=== PATIENT | female | born 1940 | race African-American/Black ===

== ENCOUNTER 2018-04-11 08:12 | Day surgery (SDC) | payer MEDICARE, BC ==
[~2018-04-11] VITALS: Ht 162.6 cm; Wt 67.6 kg
[2018-04-11] VITALS (7 sets, daily range): BP systolic 116–155; BP diastolic 71–87
[~2018-04-11 08:12] MED LIST: BAYER PLUS 500500 MG PO; CITRACAL + D C1 EACH PO; COZAAR50 MG PO; ESTER-C 500 MG1 EACH PO; FISH OIL SOFTG1 EAC1 PO; GARLIC400 MG PO; GLUCOSAMINE CO1 EACH PO; IBUPROFEN600 MG ORAL; LIPITOR80 MG ORAL; METOPROLOL SUCC50 MG ORAL; TAB-A-VITE1 EACH ORAL
[2018-04-11] MEDS ORDERED: Midazolam 2mg/2ml Inj ONE (08:36)
--- NOTE | 2018-04-11 10:05 | Pre-Procedure Note/Attestation ---
Pre-Procedure Note/Attestation Complete Prior to Procedure Planned Procedure: not applicable Procedure Narrative: colonoscopy Indications for Procedure Pre-Operative Diagnosis: screening Attestation I attest that I discussed the nature of the procedure; its benefits; risks and complications; and alternatives (and the risks and benefits of such alternatives ), prior to the procedure, with the patient (or the patient's legal field representative). I attest that, if there was a reasonable possibility of needing a blood transfusion, the patient (or the patient's legal field representative) was given the [facility] standardized written summary, pursuant to the [place] Blood Safety Act ([place] Health and Safety Code # 1645, as amended). I attest that I re-evaluated the patient just prior to the surgery and that there has been no change in the patient's H&P, except as documented below: Marvin Panchal MD Apr 11, 2018 10:05
--- NOTE | 2018-04-11 10:06 | Short Stay Surgery H&P ---
History of Present Illness History of Present Illness Chief Complaint screening colonoscopy HPI Jeremy Vasques is a 77 year old female who was admitted on for Colon Screening Patient History Allergies: Coded Allergies: No Known Allergies (Unverified , 04/11/18) PAST MEDICAL HISTORY: (1) HTN (hypertension) (2) Asthma Medication History Scheduled Asa/Calcium Carb/Mag/Al Hydrox (Shalom Plus 500 Mg Caplet), 81 MG PO DAILY, ( Reported) Ascorbate Calcium/Bioflav (Dana-C 500 Mg Tablet), 1 EACH PO DAILY, (Reported) Atorvastatin (Lipitor), 40 MG ORAL DAILY, (Reported) Calcium Citrate/Vitamin D3 (Citracal + D Caplet), 2 EACH PO DAILY, (Reported) Garlic (Garlic), 1,250 MG PO DAILY, (Reported) Gluc [place]/Msm/Magnesium/Vit C (Glucosamine Complex-Msm Cap), 2 EACH PO DAILY, ( Reported) Losartan Potassium* (Cozaar*), 100 MG PO DAILY, (Reported) Metoprolol Succinate* (Metoprolol Succinate*), 50 MG ORAL DAILY, (Reported) Multivitamin (Tab-A-Isaiah), 1 TAB ORAL DAILY, (Reported) [place]-3 Fatty Acids/Fish Oil (Fish Oil Softgel), 1 EACH PO DAILY, (Reported) Discontinued Medications Ibuprofen* (Motrin*), 600 MG ORAL THREE TIMES A DAY, (Reported) Discontinued Reason: Pt stopped taking med Review of Systems Cardiovascular: Reports: no symptoms Respiratory: Reports: no symptoms Skeletal: Reports: no symptoms Gastrointestinal: Reports: no symptoms Genitourinary: Reports: no symptoms Neurologic: Reports: no symptoms Endocrine: Reports: no symptoms Hematologic: Reports: no symptoms Physical Exam Vital Signs Last Vital Signs Date Time Temp Pulse Resp B/P (MAP) Pulse Ox O2 Delivery O2 Flow Rate FiO2 04/11/18 08:42 97.0 87 18 155/78 98 Room Air 97.0 Skin: normal HENT: normal Heart: normal Lungs: normal Abdomen: normal Extremities: normal Plan Plan of Care colonoscopy Attestation Are the patient's medical conditions optimized for surgery? Attestation Response: yes Marvin Panchal MD Apr 11, 2018 10:06
[2018-04-11] MEDS ORDERED: LR 1000ml 1,000 ML IVLG SCH (10:22)
--- NOTE | 2018-04-11 10:29 | Anethesia Preoperative Eval ---
Anesthesia Pre-op PMH/ROS General Date of Evaluation: Apr 11, 2018 Time of Evaluation: 10:22 Anesthesiologist: Julien ASA Score: ASA 3 Mallampati Score Class I : Soft palate, uvula, fauces, pillars visible Class II: Soft palate, uvula, fauces visible Class III: Soft palate, base of uvula visible Class IV: Only hard plate visible Mallampati Classification: Class II Surgeon: Ansley Diagnosis: Abd Pain Surgical Procedure: Colonoscopy Anesthesia History: none Family History: no anesthesia problems Allergies: Coded Allergies: No Known Allergies (Unverified , 04/11/18) Medications: see eMAR Patient NPO?: Yes Past Medical History PSxH Narrative: MELLY Anesthesia Pre-op Phys. Exam Physician Exam Last Vital Signs Date Time Temp Pulse Resp B/P (MAP) Pulse Ox O2 Delivery O2 Flow Rate FiO2 04/11/18 08:42 97.0 87 18 155/78 98 Room Air 97.0 Constitutional: NAD Neurologic: CN 2-12 intact Cardiovascular: RRR Respiratory: CTA Gastrointestinal: S/NT/ND Airway Exam Mallampati Score: Class II MO: limited ROM: limited Teeth: missing, intact Anesthesia Pre-op A/P Risk Assessment & Plan Assessment: ASA 3 Plan: GA Status Change Before Surgery: No Sunil Victoria MD Apr 11, 2018 10:29
[2018-04-11] MEDS ORDERED: Ketorolac 30mg Inj IV PRN ×2 (10:30)
[2018-04-11] MEDS ORDERED: Metoclopramide 10mg/2ml Inj IVP PRN (10:30)
[2018-04-11] MEDS ORDERED: Meperidine 50mg/ml Inj(FOR RIGORS ONLY) IVP PRN (10:30)
[2018-04-11] MEDS ORDERED: LORazepam Inj 2mg/ml 1ml IV PRN (10:30)
[2018-04-11] MEDS ORDERED: DiphenhydrAMINE 50mg/ml Inj IVP PRN (10:30)
[2018-04-11] MEDS ORDERED: Atropine Sulfate 0.4mg/ml inj IVP PRN (10:30)
[2018-04-11] MEDS ORDERED: HYDROcodone/Acetamin 7.5/325 tab ORAL PRN (10:30)
[2018-04-11] MEDS ORDERED: Norco 5mg/325mg tab ORAL PRN (10:30)
[2018-04-11] MEDS ORDERED: Hydromorphone 0.5mg/0.5ml inj IVP PRN (10:30)
[2018-04-11] MEDS ORDERED: Midazolam 2mg/2ml Inj IVP PRN (10:30)
[2018-04-11] MEDS ORDERED: fentaNYL 100 mcg/2 mL IV PRN (10:30)
[2018-04-11] MEDS ORDERED: Lidocaine 1% MPF 10mg/ml 5ml ONE (10:30)
[2018-04-11] MEDS ORDERED: LR 1000ml ONE (10:30)
[2018-04-11] MEDS ORDERED: Propofol 200mg/20ml IV ONE (10:30)
[2018-04-11] MEDS ORDERED: oxyCODONE HCL/Acetaminophen 5/325mg ORAL PRN (10:30)
--- NOTE | 2018-04-11 10:30 | Immediate Post-Op Evaluation ---
Immediate Post-Op Evalulation Immediate Post-Op Evalulation Procedure: Colonoscopy Date of Evaluation: Apr 11, 2018 Time of Evaluation: 10:59 IV Fluids: 400 LR Blood Products: 0 Estimated Blood Loss: 2 Urinary Output: 0 Blood Pressure Systolic: 116 Blood Pressure Diastolic: 75 Pulse Rate: 79 Respiratory Rate: 16 O2 Sat by Pulse Oximetry: 100 Temperature (Fahrenheit): 97.8 Pain Score (1-10): 1 Nausea: No Vomiting: No Complications 0 Patient Status: awake, reacts, patent, none Hydration Status: adequate Sunil Victoria MD Apr 11, 2018 10:30
--- NOTE | 2018-04-11 10:31 | 48 Hour Post Anesthesia Eval ---
Post Anesthesia Evaluation Procedure: Colonoscopy Date of Evaluation: Apr 11, 2018 Time of Evaluation: 13:04 Blood Pressure Systolic: 132 0: 78 Pulse Rate: 81 Respiratory Rate: 18 Temperature (Fahrenheit): 97.8 O2 Sat by Pulse Oximetry: 100 Airway: patent Nausea: No Vomiting: No Pain Intensity: 1 Hydration Status: adequate Cardiopulmonary Status: Stable Mental Status/LOC: patient returned to baseline Follow-up Care/Observations: 0 Post-Anesthesia Complications: 0 Follow-up care needed: ready to discharge Sunil Victoria MD Apr 11, 2018 10:31
--- NOTE | 2018-04-11 10:36 | Endoscopy Procedure Note ---
Endoscopy Procedure Note General Indication for Procedure: screening Procedures Performed: colonoscopy Operative Findings/Diagnosis: diverticulosis Specimen: none Pt Tolerated Procedure Well: Yes Estimated Blood Loss: none Anesthesia Anesthesiologist: parker Anesthesia: MAC Inserted Devices Implant(s) used?: No Quality Quality of Bowel Preparation: Good Did scope reach the cecum?: Yes Was there any complications?: No GI Core Measures 50 yrs or older w/o bx or poly: No 10yrs. F/U not recommended: Yes If not recommended, why?: Above average risk 10 yrs. F/U needed: Yes 18 years or older w/prev. colo: Yes <3yrs. since last colonoscopy: No Marvin Panchal MD Apr 11, 2018 10:36
--- NOTE | 2018-04-11 14:42 | Cardiology Report ---
APPROVED REPORT EKG Measurement Heart [id number] Sinus rhythm with premature atrial complexes with aberrant conduction Inferior infarct, age undetermined Possible Anterior infarct, age undetermined Abnormal ECG
--- NOTE | 2018-04-11 16:45 | Procedure Note ---
DATE OF PROCEDURE: 04/11/2018 SURGEON: Marvin Panchal M.D. ANESTHESIOLOGIST: Dr. Victoria. PROCEDURE: Colonoscopy. ANESTHESIA: Per Dr. Victoria. INSTRUMENT: Olympus adult flexible colonoscope. INDICATION: Screening colonoscopy. The procedure, risks, benefits, and possible consequences, including hemorrhage, aspiration, perforation and infection, and alternative treatments, were explained to the patient/legal guardian by Dr. Marvin Panchal and the patient/legal guardian understood and accepted these risks. DESCRIPTION OF PROCEDURE: After informed consent was obtained and the patient was adequately sedated, first rectal exam was performed which was normal. Then, the scope was advanced from the rectum into the cecum and then subsequently to the terminal ileum. Quality of prep was good. The patient had normal colonoscopy examination except for scattered diverticulosis in the left colon. No obvious polyp, mass, and any other pathology was seen. Retroflexion of rectum showed evidence of small nonbleeding internal hemorrhoids. SUMMARY OF FINDINGS: Scattered diverticulosis in the left colon, otherwise normal colonoscopy examination. RECOMMENDATIONS: Repeat colonoscopy in 5 years. Marvin Panchal M.D. DR: Jose Luis JOB#: [id number] CC:
== END 2018-04-11 12:45 | disposition home or self-care (01) ==
LOC: GAS 08:12
DX: Z12.11 Encounter for screening for malignant neoplasm of colon (principal); K57.30 Diverticulosis of large intestine without perforation or abscess without bleeding; K64.8 Other hemorrhoids; I10 Essential (primary) hypertension; J45.909 Unspecified asthma, uncomplicated
CPT/HCPCS: 93005; G0121; J2250; J2704; 94003; 94150